=== PATIENT | male | born 1950 | race Caucasian/White ===

== ENCOUNTER 2016-12-01 03:45 | Inpatient (IN) | payer OTHER, MEDICARE ==
[~2016-12-01] VITALS: Ht 177.8 cm; Wt 119.5 kg
[2016-12-01] VITALS (11 sets, daily range): BP systolic 143–168; BP diastolic 66–74; PULSE 51–90; RESP 16–19; TEMP 96.4–98.9; O2SAT 94–99
[2016-12-01] MEDS ORDERED: PANT20TA2 PO (04:07)
[2016-12-01] MEDS ORDERED: ATEN25TA PO (04:07)
[2016-12-01] MEDS ORDERED: TEST1INJ3 IM (04:07)
[2016-12-01] MEDS ORDERED: CARB25TA16 PO (04:07)
[2016-12-01] MEDS ORDERED: COPP2TAB (04:07)
[2016-12-01] MEDS ORDERED: TRAZ100T4 PO (04:07)
[2016-12-01] MEDS ORDERED: IRBE300T11 PO (04:07)
[2016-12-01] MEDS ORDERED: FENO134C PO (04:07)
[2016-12-01] MEDS ORDERED: AMLO5TAB2 PO (04:07)
[2016-12-01] MEDS ORDERED: LEVO25TA4 PO (04:07)
[2016-12-01] MEDS ORDERED: ONDANSETRON HCL 4 MG/2 ML VIAL IVP ONE (04:15)
[2016-12-01] MEDS ORDERED: SODIUM CHLORID 0.9% 500 ML INJ 500 ML IV ONE (04:15)
--- NOTE | 2016-12-01 04:17 | PD ---
HPI Chief Complaint: GI Complaint Time Seen by Provider: 04:10 Travel History International Travel<30 days: No Contact w/Intl Traveler<30days: No Traveled to known affect area: No History of Present Illness HPI 66-year-old male patient presents to the ER today because of constipation for at least a week, and several days history of nausea, vomiting multiple times today. He denies any fevers, current abdominal pains, or any other symptoms. He states he has been feeling bloated for several days as well. He states that the symptoms seems to have started after eating a [place]iqu[place] a week ago. Modifying Factors: None Associated Signs & Symptoms: Abdominal bloating, nausea and vomiting Risk Factors: None PFSH Social History Tobacco Use: Yes Allergies-Medications (Allergen,Severity, Reaction): Coded Allergies: No Known Allergies (Unverified , 12/01/16) Reported Meds & Prescriptions Reported Meds & Active Scripts Active Reported Testosterone Cypionate Inj (Testosterone Cypionate) 100 Mg/Ml Inj 200 Mg IM ONCE Copper (Copper Gluconate) 2 Mg Tab Fenofibrate Micronized 134 Mg Cap 134 Mg PO DAILY Atenolol 25 Mg Tab 25 Mg PO BID Carbidopa-Levodopa ER 25-100 Mg Tab 1 Tab PO DAILY Irbesartan 300 Mg Tab 300 Mg PO DAILY Trazodone (Trazodone HCl) 100 Mg Tab 100 Mg PO HS Levothyroxine (Levothyroxine Sodium) 25 Mcg Tab 25 Mcg PO DAILY Pantoprazole (Pantoprazole Sodium) 20 Mg Tab 20 Mg PO DAILY Amlodipine (Amlodipine Besylate) 5 Mg Tab 5 Mg PO DAILY Review of Systems Except as stated in HPI: all other systems reviewed are Neg Physical Exam Narrative GENERAL: Elderly white male patient currently in moderate distress, awake and oriented 3. SKIN: Focused skin assessment warm/dry. HEAD: Atraumatic. Normocephalic. EYES: Pupils equal and round. No scleral icterus. No injection or drainage. ENT: No nasal bleeding or discharge. Mucous membranes pink and moist. NECK: Trachea midline. No JVD. CARDIOVASCULAR: Regular rate and rhythm. No murmur appreciated. RESPIRATORY: No accessory muscle use. Clear to auscultation. Breath sounds equal bilaterally. GASTROINTESTINAL: Abdomen soft, left lower quadrant tenderness without guarding or rebound, there is a notable for nodule in the left lower quadrant, nondistended. Hepatic and splenic margins not palpable. MUSCULOSKELETAL: No obvious deformities. No clubbing. No cyanosis. No edema. NEUROLOGICAL: Awake and alert. No obvious cranial nerve deficits. Motor grossly within normal limits. Normal speech. PSYCHIATRIC: Appropriate mood and affect; insight and judgment normal. Data Data Last Documented VS Vital Signs Date Time Temp Pulse Resp B/P Pulse Ox O2 Delivery O2 Flow Rate FiO2 12/01/16 05:41 74 16 164/73 99 Room Air 12/01/16 04:27 98.0 Orders Complete Blood Count With Diff (12/01/16 04:10) Comprehensive Metabolic Panel (12/01/16 04:10) Lipase (12/01/16 04:10) Urinalysis - C+S If Indicated (12/01/16 04:10) Ct Abd/Pel W Iv Contrast(Rout) (12/01/16 04:10) Iv Access Insert/Monitor (12/01/16 04:10) Ecg Monitoring (12/01/16 04:10) Oximetry (12/01/16 04:10) Ondansetron Inj (Zofran Inj) (12/01/16 04:15) Sodium Chloride 0.9% Flush (Ns Flush) (12/01/16 04:15) Sodium Chlorid 0.9% 500 Ml Inj (Ns 500 M (12/01/16 04:15) Iohexol 350 Inj (Omnipaque 350 Inj) (12/01/16 05:42) Labs Laboratory Tests Test 12/01/16 04:19 White Blood Count 17.2 TH/MM3 Red Blood Count 5.83 MIL/MM3 Hemoglobin 15.6 GM/DL Hematocrit 48.7 % Mean Corpuscular Volume 83.5 FL Mean Corpuscular Hemoglobin 26.7 PG Mean Corpuscular Hemoglobin 32.0 % Concent Red Cell Distribution Width 14.6 % Platelet Count 366 TH/MM3 Mean Platelet Volume 9.1 FL Neutrophils (%) (Auto) 87.7 % Lymphocytes (%) (Auto) 4.0 % Monocytes (%) (Auto) 5.7 % Eosinophils (%) (Auto) 0.1 % Basophils (%) (Auto) 2.5 % Neutrophils # (Auto) 15.1 TH/MM3 Lymphocytes # (Auto) 0.7 TH/MM3 Monocytes # (Auto) 1.0 TH/MM3 Eosinophils # (Auto) 0.0 TH/MM3 Basophils # (Auto) 0.4 TH/MM3 CBC Comment DIFF FINAL Differential Comment Sodium Level 141 MEQ/L Potassium Level 4.1 MEQ/L Chloride Level 105 MEQ/L Carbon Dioxide Level 22.2 MEQ/L Anion Gap 14 MEQ/L Blood Urea Nitrogen 28 MG/DL Creatinine 1.30 MG/DL Estimat Glomerular Filtration 55 ML/MIN Rate Random Glucose 127 MG/DL Calcium Level 9.5 MG/DL Total Bilirubin 1.0 MG/DL Aspartate Amino Transf 118 U/L (AST/SGOT) Alanine Aminotransferase 103 U/L (ALT/SGPT) Alkaline Phosphatase 105 U/L Total Protein 8.2 GM/DL Albumin 3.0 GM/DL Lipase 406 U/L [facility] Medical Decision Making Medical Screen Exam Complete: Yes Emergency Medical Condition: Yes Medical Record Reviewed: Yes Interpretation(s) Laboratory Tests Test 12/01/16 04:19 White Blood Count 17.2 TH/MM3 (4.0-11.0) Mean Corpuscular Hemoglobin 26.7 PG (27.0-34.0) Neutrophils (%) (Auto) 87.7 % (16.0-70.0) Lymphocytes (%) (Auto) 4.0 % (9.0-44.0) Basophils (%) (Auto) 2.5 % (0.0-2.0) Neutrophils # (Auto) 15.1 TH/MM3 (1.8-7.7) Lymphocytes # (Auto) 0.7 TH/MM3 (1.0-4.8) Monocytes # (Auto) 1.0 TH/MM3 (0-0.9) Basophils # (Auto) 0.4 TH/MM3 (0-0.2) Blood Urea Nitrogen 28 MG/DL (7-18) Estimat Glomerular Filtration 55 ML/MIN (>89) Rate Random Glucose 127 MG/DL (74-106) Aspartate Amino Transf 118 U/L (15-37) (AST/SGOT) Alanine Aminotransferase 103 U/L (12-78) (ALT/SGPT) Albumin 3.0 GM/DL (3.4-5.0) Lipase 406 U/L (73-393) Differential Diagnosis Nausea, vomiting, left lower quadrant tendernesscolitis versus gastroenteritis versus obstruction versus dehydration versus metabolic issues Narrative Course Patient was given IV fluids, Zofran, and lab work was sent. Lab work shows liver enzyme elevations and mild lipase elevations as well. CAT scan was done for further evaluation and shows a lateral ventral hernia with signs of bowel obstruction. There are also inflammation around the gallbladder notable. Case is discussed with Dr. Arellano and he states he wants to see the patient, wants the patient transferred to the main hospital for definitive treatment in the OR. Diagnosis Primary Impression: Lateral ventral hernia Additional Impressions: Bowel obstruction Cholecystitis Admitting Information Admitting Physician Requests: Admit Alok Bojorquez MD Dec 01, 2016 04:17
[2016-12-01 04:46] LABS: AUTOMATED NEUTROPHIL # 15.1 TH/MM3 (1.8-7.7); BASOPHIL # 0.4 TH/MM3 (0-0.2); BASOPHIL % 2.5 % (0.0-2.0); EOSINOPHIL % 0.1 % (0.0-4.0); HEMATOCRIT 48.7 % (39.0-51.0); LYMPHOCYTE # 0.7 TH/MM3 (1.0-4.8); MEAN CELL VOLUME 83.5 FL (80.0-100.0); MEAN CORPUSCULAR HEMOGLOBIN 26.7 PG (27.0-34.0); MONO % 5.7 % (0.0-8.0); NEUT % 87.7 % (16.0-70.0); PLATELET COUNT 366 TH/MM3 (150-450); RED BLOOD COUNT 5.83 MIL/MM3 (4.50-5.90); RED CELL DISTRIBUTION WIDTH 14.6 % (11.6-17.2); WHITE BLOOD COUNT 17.2 TH/MM3 (4.0-11.0)
[2016-12-01 04:49] LABS: HEMO FLAGS DIFF FINAL
[2016-12-01 04:57] LABS: CHLORIDE 105 MEQ/L (98-107); POTASSIUM 4.1 MEQ/L (3.5-5.1); SODIUM (NA) 141 MEQ/L (136-145)
[2016-12-01 05:01] LABS: ANION GAP 14 MEQ/L (5-15); BICARBONATE 22.2 MEQ/L (21.0-32.0); BLOOD UREA NITROGEN 28 MG/DL (7-18)
[2016-12-01 05:04] LABS: ALT (GPT) 103 U/L (12-78); AST (GOT) 118 U/L (15-37); GLOMERULAR FILTRATION RATE 55 ML/MIN (>89)
[2016-12-01 05:07] LABS: ALKALINE PHOSPHATASE 105 U/L (45-117)
[2016-12-01] MEDS ORDERED: IOHEXOL 350 MG/ML 10 ML VIAL (for RAD DIAG) IV ONE (05:42)
--- NOTE | 2016-12-01 06:02 | RADHPO ---
EXAM DATE/TIME: 12/01/2016 05:23 [facility] COMPARISON: No previous studies available for comparison. INDICATIONS : Nausea, vomiting, and constipation. IV CONTRAST: 96 cc Omnipaque 350 (iohexol) IV ORAL CONTRAST: No oral contrast ingested. RADIATION DOSE: 21.87 CTDIvol (mGy) MEDICAL HISTORY : None SURGICAL HISTORY : None. ENCOUNTER: Initial ACUITY: 1 day PAIN SCALE: 4/10 LOCATION: Abdomen. TECHNIQUE: Volumetric scanning of the abdomen and pelvis was performed. Using automated exposure control and ad justment of the mA and/or kV according to patient size, radiation dose was kept as low as reasonably achievable to obtain optimal diagnostic quality images. FINDINGS: LOWER LUNGS: There is fluid seen involving the lower thoracic esophagus. The esophagus is dilated. LIVER: Homogeneous density without lesion. There is no dilation of the biliary tree. No calcified gallstone s observed. There is wall thickening and mild stranding of the pericholecystic fat. SPLEEN: Normal size without lesion. PANCREAS: Within normal limits. KIDNEYS: Normal in size and shape. There is no mass, stone or hydronephrosis. ADRENAL GLANDS: Within normal limits. VASCULAR: There is no aortic aneurysm. BOWEL/MESENTERY: There is a Spigellian hernia on the left lobe within the left lower quadrant. It contains a loop of s mall bowel. There is a focal transition point in the caliber of bowel within the hernia. There is dil atation of the proximal small bowel which is also fluid-filled. The distal small bowel and colon are decompressed. No free air or free fluid. ABDOMINAL WALL: Spigellian hernia on the left. RETROPERITONEUM: There is no lymphadenopathy. BLADDER: No wall thickening or mass. REPRODUCTIVE: Within normal limits. INGUINAL: There is no lymphadenopathy or hernia. MUSCULOSKELETAL: Within normal limits for patient age. CONCLUSION: 1. A Spigellian hernia on the left contains small bowel and is clearly obstructing with dilatation of the more proximal small bowel. 2. Wall thickening and stranding of the pericholecystic fat suggesting an inflammatory process involv ing the gallbladder. No stones observed. Ricardo Akins Jr., MD on December 01, 2016 at 5:54 Board Certified Radiologist. This report was verified electronically.
[2016-12-01 06:20] LABS: BLOOD, URINE NEG (NEG); GLUCOSE,URINE NEG (NEG); KETONE, URINE NEG (NEG); NITRITE,URINE NEG (NEG); PH, URINE 5.5 (5.0-8.5)
[2016-12-01 06:27] LABS: METHOD OF COLLECTION CLEAN CATCH; URINE COLOR AMBER (YELLW/STRAW)
[2016-12-01 06:29] LABS: COMMENT (UR) CULT NOT INDICATED; COMMENT2 (UR) MUCOUS PRESENT; CULTURE IF INDICATED CULT NOT INDICATED; SQUAMOUS EPITHELIAL CELL URINE 0-5 /hpf (0-5); TRANSITIONAL EPI CELLS, URINE 0-5 /hpf
[2016-12-01] MEDS ORDERED: LIDOCAINE HCL 1% 50 ML VIAL ONE (10:14)
[2016-12-01] MEDS ORDERED: BUPIVACAINE/EPINEPHRINE 0.5% 50 ML VIAL ONE (10:14)
[2016-12-01] MEDS ORDERED: BUPIVACAINE/EPINEPHRINE 0.25% 50 ML VIAL ONE (10:14)
[2016-12-01] MEDS ORDERED: ceFAZolin INJ 1,000 MG VIAL ONE (10:55)
[2016-12-01] MEDS ORDERED: fentaNYL CITRATE 250 MCG/5 ML AMP ONE ×2 (10:59→14:05)
--- NOTE | 2016-12-01 11:44 | MH ---
cc: MOLLY VILLAR MD DATE OF ADMISSION: 12/01/2016 CHIEF COMPLAINT Abdominal point of pain, ventral hernia. HISTORY OF PRESENT ILLNESS The patient is a 66-year-old male who presents with history of sleeve gastrectomy and right inguinal hernia repair, several medical issues, complaints of nausea, vomiting, abdominal pain. He stated the pain has gone on for approximately one week. He has been in pain in the left lower quadrant, intermittent, sharp with 8 out of 10, currently a 2 out of 10, better with lying still, worse with movement. He has had associated multiple episodes recently of nausea, vomiting. It prompted him to come to the emergency department for further evaluation including CT scan. CT findings are consistent with spigelian hernia on the left, incarcerated small bowel with bowel obstruction. Also concern for inflamed gallbladder. The patient is denying significant complaints of right upper quadrant pain or pain on eating though. He complains of constipation. He denies diarrhea. He said he has had some pain on the left lower quadrant in the past that came intermittently but this was the worst. Surgery was consulted for further evaluation. PAST MEDICAL HISTORY 1. Hypertension. 2. Morbid obesity. 3. Sleep apnea. 4. History of pituitary disease. 5. Hypercholesteremia. PAST SURGICAL HISTORY 1. Right inguinal hernia repair. 2. Sleeve gastrectomy five years ago. SOCIAL HISTORY The patient denies smoking daily but has occasional cigars. Occasional ETOH. FAMILY HISTORY Father with hypertension and diabetes. ALLERGIES The patient with no known drug allergies. MEDICATIONS See EMR, aspirin. REVIEW OF SYSTEMS GENERAL: Denies eye pain, ear pain. HEENT: Denies blurry vision or drainage. NECK: Denies pain or swelling. CARDIOVASCULAR: Denies palpitations, tachycardia. RESPIRATION: Denies wheeze or cough. GI: Complains of nausea, vomiting, abdominal pain, hernia. MUSCULOSKELETAL: Denies edema or cyanosis. NEUROLOGIC: Denies numbness or tingling. PSYCHE: Denies change in mood. ENDOCRINE: Denies dysuria or hematuria. : Denies polyuria, polydipsia. PHYSICAL EXAMINATION GENERAL: The patient is in no acute distress. VITAL SIGNS: Temperature 98, pulse 74, respirations 16, blood pressure 164/73, 99% saturation on room air. HEENT: PERRLA, EOMI. NECK: Supple. Trachea midline. LUNGS: Clear to auscultation bilaterally. Bilateral expansion. HEART: S1, S2, regular rhythm. ABDOMEN: Soft, mild distension, obese. Healed laparoscopic surgery scars, palpable firm hernia left lower quadrant, non reducible. No evidence of erythema. EXTREMITIES: Minimal lower extremity brawny skin changes. No edema. Warm, well-perfused. PSYCHE: Good insight, good judgment. NEUROLOGIC: GCS of 15. A&O x4. Moving all extremities. LABORATORY AND DIAGNOSTIC DATA WBC 17.2 hemoglobin 15.6, hematocrit 48.7, platelets 366. Sodium 141, potassium 4.1, BUN 28, creatinine 1.3, glucose 127, calcium 9.5. T-bili 1, AST 118, ALT 103, lipase 406, albumin 3. CT reviewed by myself reveals spigelian hernia left lower quadrant containing small-bowel with obstruction, dilated proximal small bowel wall thickening and stranding of the gallbladder with concern for inflammatory process. ASSESSMENT The patient is a 66-year-old male with history of sleeve gastrectomy, presents with incarcerated left lower quadrant spigelian hernia. Concern for acalculous cholecystitis. PLAN After full clinical radiologic data, the patient with above-named issues including incarcerated left lower quadrant spigelian hernia. At this point the patient needs IV fluids and p.o. pain control. We will take the patient to the OR for operative treatment including a diagnostic laparoscopy, possible open exploratory laparotomy, possible mesh, possible bowel resection. This was discussed with the patient in detail. In regards to the gallbladder, the patient does have minimal symptomatology from this, however, it does look inflamed and his labs minimally reflect this as well. Discussed with the patient regarding possible cholecystectomy. We will evaluate this in the OR, if grossly looks concerning we will remove the gallbladder at this time. However, I discussed if we were planning to place mesh or there is further concern, we will treat the gallbladder conservatively as to avoid higher risk of mesh infection. This was all discussed with the patient and at bedside. They stated understanding, agreed and would like to proceed. MD SHARAN Arreguin/JHONY /8:30 AM /11:14 AM
[2016-12-01] MEDS ORDERED: ePHEDrine/NS 25 MG/5 ML SYR IV ONE (12:00)
[2016-12-01] MEDS ORDERED: ONDANSETRON HCL 4 MG/2 ML VIAL IV PUSH ONE (12:00)
[2016-12-01] MEDS ORDERED: PROPOFOL 200 MG/20 ML AMP IV ONE (12:00)
[2016-12-01] MEDS ORDERED: NEOSTIGMINE 3 MG/3 ML SYR IV ONE (12:00)
[2016-12-01] MEDS ORDERED: LACTATED RINGER'S 1000 ML INJ 2,000 ML IV ONE (12:00)
--- NOTE | 2016-12-01 14:08 | HHI.PR ---
cc: Floyd Woo MD Immediate Post Op Note Procedure Date: Dec 01, 2016 Pre Op Diagnosis: (1) Cholecystitis (2) Bowel obstruction (3) Lateral ventral hernia (4) Spigelian hernia with gangrene Post Op Diagnosis: (1) Cholecystitis (2) Bowel obstruction (3) Lateral ventral hernia (4) Spigelian hernia with gangrene Surgeon: Floyd Woo Tail End Rider(s): constance tovar Procedure: reduction of incarcerated spigelian hernia and resection of necrotic omentum lap christy Findings: incarcerated spigelian hernia inflammed gb Complications: point hope ira Specimen(s) removed: omentum and gb Anesthesia: General Drains: HEATHER IVF Patient to: PACU Patient Condition: Good Implant/Devices: SEE IMPLANT LOG (if applicable) Date/Time of Procedure: SEE SURGICAL CARE RECORD Floyd Woo MD Dec 01, 2016 14:08
[2016-12-01] MEDS ORDERED: PROMETHAZINE HCL 25 MG SUPP RECTAL PRN (14:15)
[2016-12-01] MEDS ORDERED: SODIUM CHLORIDE 0.9% FLUSH 5 ML FLUSH IVF PRN (14:15)
[2016-12-01] MEDS ORDERED: ONDANSETRON HCL 4 MG/2 ML VIAL IV PRN (14:15)
[2016-12-01] MEDS ORDERED: ACETAMINOPHEN/HYDROcodone 325 MG/5 MG TAB PO PRN ×2 (14:15)
[2016-12-01] MEDS: PANTOPRAZOLE SODIUM 40 MG VIAL IV SCH (14:23)
[2016-12-01] MEDS: LACTATED RINGER'S 1000 ML INJ 1,000 ML IV SCH ×2 (14:25→19:27)
--- NOTE | 2016-12-01 16:24 | PD.CONS ---
HPI Service [facility] Consult Requested By General surgery service Reason for Consult Medical management Primary Care Physician Gurwinder Sanchez MD Diagnoses: History of Present Illness Patient is a 66-year-old male with known history of hypertension, hyperlipidemia , hypothyroidism who for the past 1 week now has been complaining of abdominal pain. Yesterday severe in intensity associated with nausea vomiting. Persistence prompted consult to the ER at [facility] where on evaluation was noted to have an incarcerated ventral hernia and patient was transferred here to [facility] was promptly seen by general surgery service and underwent surgery Finding shows a large ventral hernia and a spigelian hernia with gangrene. Patient had an inflamed gallbladder Patient had reduction of incarcerated hernia and resection of necrotic omentum. Patient also had a cholecystectomy done. Patient now seen postop and doing well and [facility] consulted for medical management. Review of Systems Constitutional: DENIES: Fever, Weight loss, Chills, Change in appetite Eyes: DENIES: Blurred vision, Double Vision Ears, nose, mouth, throat: DENIES: Tinnitus, Ear Pain, Epistaxis, Odynophagia Respiratory: DENIES: Cough, Hemoptysis, Sputum production, Shortness of breath Cardiovascular: DENIES: Chest pain, Palpitations, Dyspnea on Exertion, Lower Extremity Edema, Orthopnea Gastrointestinal: DENIES: Black stools, Bloody stools, Difficulty Swallowing, Anorexia Genitourinary: DENIES: Urgency, Hematuria, Penile Discharge Musculoskeletal: DENIES: Joint pain, Stiffness Integumentary: DENIES: Pruritus Hematologic/lymphatic: DENIES: Bruising Immunologic/allergic: DENIES: Urticaria Neurologic: DENIES: Headache, Speech Problems, Tremor Psychiatric: DENIES: Suicidal Ideation, Homicidal Ideation Past Family Social History Allergies: Coded Allergies: No Known Allergies (Unverified , 12/01/16) Past Medical History Hypertension Restless leg syndrome Hyperlipidemia Hypothyroidism Empty sella syndrome Past Surgical History History of sleeve gastrectomy for obesity 5 years ago History of right inguinal hernia repair at 1 years old and at 28 years old Reported Medications As outpatient is on irbesartan 3300 mg daily testosterone IM every 10 days Trazodone 100 mg at bedtime Atenolol 25 mg twice a Carbidopa/levodopa 25/100 mg daily Fenofibrate 134 mg daily Synthroid 25 g daily Family History Hello positive history of hypertension and diabetes type 2 Social History Very occasional cigar Very occasional beer Physical Exam Vital Signs Vital Signs Date Time Temp Pulse Resp B/P Pulse Ox O2 Delivery O2 Flow Rate FiO2 12/01/16 14:45 98.7 63 14 148/66 96 Nasal Cannula 2 12/01/16 14:30 57 14 136/66 95 12/01/16 14:15 58 14 127/59 96 12/01/16 14:00 64 14 121/53 97 Nasal Cannula 2 12/01/16 13:55 98.6 69 16 141/70 97 Nasal Cannula 2 12/01/16 09:18 97.6 51 19 158/72 97 12/01/16 07:00 53 18 151/74 99 Room Air 12/01/16 05:41 74 16 164/73 99 Room Air 12/01/16 05:07 55 16 152/68 97 Room Air 12/01/16 04:32 54 16 144/74 94 Room Air 12/01/16 04:27 98.0 64 18 143/69 96 12/01/16 04:19 54 16 144/74 96 Room Air 12/01/16 03:51 98.0 64 18 143/69 96 Physical Exam GENERAL: Obese in no apparent distress. SKIN: No rashes, ecchymoses or lesions. Cool and dry. HEAD: Atraumatic. Normocephalic. No temporal or scalp tenderness. EYES: Pupils equal round and reactive. Extraocular motions intact. No scleral icterus. No injection or drainage. ENT: Nose without bleeding, purulent drainage or septal hematoma. Throat without erythema, tonsillar hypertrophy or exudate. Uvula midline. Airway patent. NECK: T No JVD or lymphadenopathy. Supple, nontender, no meningeal signs. CARDIOVASCULAR: Regular rate and rhythm without murmurs, gallops, or rubs. RESPIRATORY: Clear to auscultation. Breath sounds equal bilaterally. No wheezes , rales, or rhonchi. GASTROINTESTINAL: Abdomen soft, postop dressing in place with bulb/drain with minimal blood MUSCULOSKELETAL: Extremities without clubbing, cyanosis, or edema. No joint tenderness, effusion, or edema noted. No calf tenderness. Negative Homans sign bilaterally. NEUROLOGICAL: Awake and alert. Cranial nerves II through XII intact. Motor and sensory grossly within normal limits. Five out of 5 muscle strength in all muscle groups. Normal speech. Laboratory Laboratory Tests Test 12/01/16 12/01/16 04:19 06:10 White Blood Count 17.2 Red Blood Count 5.83 Hemoglobin 15.6 Hematocrit 48.7 Mean Corpuscular Volume 83.5 Mean Corpuscular Hemoglobin 26.7 Mean Corpuscular Hemoglobin 32.0 Concent Red Cell Distribution Width 14.6 Platelet Count 366 Mean Platelet Volume 9.1 Neutrophils (%) (Auto) 87.7 Lymphocytes (%) (Auto) 4.0 Monocytes (%) (Auto) 5.7 Eosinophils (%) (Auto) 0.1 Basophils (%) (Auto) 2.5 Neutrophils # (Auto) 15.1 Lymphocytes # (Auto) 0.7 Monocytes # (Auto) 1.0 Eosinophils # (Auto) 0.0 Basophils # (Auto) 0.4 CBC Comment DIFF FINAL Differential Comment Sodium Level 141 Potassium Level 4.1 Chloride Level 105 Carbon Dioxide Level 22.2 Anion Gap 14 Blood Urea Nitrogen 28 Creatinine 1.30 Estimat Glomerular Filtration 55 Rate Random Glucose 127 Calcium Level 9.5 Total Bilirubin 1.0 Aspartate Amino Transf 118 (AST/SGOT) Alanine Aminotransferase 103 (ALT/SGPT) Alkaline Phosphatase 105 Total Protein 8.2 Albumin 3.0 Lipase 406 Urine Collection Type CLEAN CATCH Urine Color VICK Urine Turbidity CLEAR Urine pH 5.5 Urine Specific [place] GREATER THAN 1.035 Urine Protein 30 Urine Glucose (UA) NEG Urine Ketones NEG Urine Occult Blood NEG Urine Nitrite NEG Urine Bilirubin NEG Urine Leukocyte Esterase NEG Urine RBC 4-9 Urine Squamous Epithelial 0-5 Cells Urine Transitional Epithelial 0-5 Cells Urine Amorphous Sediment MOD Microscopic Urinalysis Comment CULT NOT INDICATED Urine Collection Time 0610 Result Diagram: 12/01/16 0419 12/01/16 041 Imaging Last Impressions Abdomen/Pelvis CT 12/01/16409 Signed Impressions: Service Date/Time: Thursday, December 01, 2016 05:23 - CONCLUSION: 1. A Spigellian hernia on the left contains small bowel and is clearly obstructing with dilatation of the more proximal small bowel. 2. Wall thickening and stranding of the pericholecystic fat suggesting an inflammatory process involving the gallbladder. No stones observed. Ricardo Akins Jr., MD Assessment and Plan Assessment and Plan 66-year-old male status post exploratory lap with repair of large ventral hernia reduction of incarcerated spigelian hernia and resection of necrotic omentum, cholecystectomy -Post op care per general surgery Acute Kidney insufficiency- currently on IVF, recheck BMP in am History of hypertension. As OP irbesartan 300 mg daily atenolol 25 mg twice a day. amlodipine. Monitor and restart meds in am History of restless leg syndrome Will restart meds in a.m. carbidopa levodopa 25 /100 mg daily trazodone 100 mg at bedtime History of hyperlipidemia continue on fenofibrate 135 mg daily History of empty sella syndrome patient on Synthroid replacement and testosterone IM every 10 days Elevated LFTs= per patient chronic. no history of hepatitis- per patient tested - negative. FF trend This encourage incentive spirometry. Early ambulation Thank you for this consult we'll follow patient in-house with you Loraine Rojas MD Dec 01, 2016 16:24
[2016-12-01] MEDS: SODIUM CHLORIDE 0.9% FLUSH 10 ML FLUSH IV FLUSH PRN (19:28)
[2016-12-01] MEDS: SODIUM CHLORIDE 0.9% FLUSH 5 ML FLUSH IVF SCH (19:28)
[2016-12-02] VITALS (8 sets, daily range): BP systolic 126–148; BP diastolic 63–71; PULSE 53–63; RESP 16–19; TEMP 97.4–99.3; O2SAT 94–97
[2016-12-02 06:24] LABS: AUTOMATED NEUTROPHIL # 11.6 TH/MM3 (1.8-7.7); BASOPHIL # 0.1 TH/MM3 (0-0.2); BASOPHIL % 0.4 % (0.0-2.0); EOSINOPHIL # 0.1 TH/MM3 (0-0.4); EOSINOPHIL % 0.5 % (0.0-4.0); HEMATOCRIT 39.3 % (39.0-51.0); HEMO FLAGS DIFF FINAL; LYMPH % 7.9 % (9.0-44.0); LYMPHOCYTE # 1.1 TH/MM3 (1.0-4.8); MEAN CELL VOLUME 85.3 FL (80.0-100.0); MEAN CORPUSCULAR HEMOGLOBIN 26.9 PG (27.0-34.0); MEAN CORPUSCULAR HGB CONC 31.5 % (32.0-36.0); MONO % 9.5 % (0.0-8.0); NEUT % 81.7 % (16.0-70.0); PLATELET COUNT 285 TH/MM3 (150-450); RED BLOOD COUNT 4.61 MIL/MM3 (4.50-5.90); RED CELL DISTRIBUTION WIDTH 15.2 % (11.6-17.2); WHITE BLOOD COUNT 14.2 TH/MM3 (4.0-11.0)
[2016-12-02 06:51] LABS: BICARBONATE 24.8 MEQ/L (21.0-32.0); POTASSIUM 4.7 MEQ/L (3.5-5.1)
[2016-12-02] MEDS: SODIUM CHLORIDE 0.9% FLUSH 5 ML FLUSH IVF SCH ×2 (08:25→21:00)
[2016-12-02] MEDS: LACTATED RINGER'S 1000 ML INJ 1,000 ML IV SCH ×2 (08:25→20:03)
--- NOTE | 2016-12-02 09:46 | HHI.PR ---
Subjective Subjective Notes DAILY PROGRESS NOTE FOR SURGICAL ATTENDING, DR. JHONATAN WOO Doing well He wants to get up and move around Objective Vitals/I&O 12/01/16 12/01/16 12/02/16 15:00 23:00 07:00 Intake Total 0 ml 745 ml 1159 ml Output Total 30 ml 670 ml 380 ml Balance -30 ml 75 ml 779 ml Intake Oral 0 ml 240 ml 240 ml IV Total 505 ml 919 ml Output Urine Total 650 ml 350 ml Drainage Total 30 ml 20 ml 30 ml # Voids 0 # Bowel Movements 0 0 0 Vital Signs Date Time Temp Pulse Resp B/P Pulse Ox O2 Delivery O2 Flow Rate FiO2 12/02/16 08:27 Nasal Cannula 2.00 12/02/16 08:00 98.8 60 18 140/71 97 Labs Laboratory Tests Test 12/02/16 12/02/16 05:34 05:43 Sodium Level 141 Potassium Level 4.7 Chloride Level 108 Carbon Dioxide Level 24.8 Anion Gap 8 Blood Urea Nitrogen 20 Creatinine 1.16 Estimat Glomerular Filtration 63 Rate Random Glucose 102 Calcium Level 8.0 White Blood Count 14.2 Red Blood Count 4.61 Hemoglobin 12.4 Hematocrit 39.3 Mean Corpuscular Volume 85.3 Mean Corpuscular Hemoglobin 26.9 Mean Corpuscular Hemoglobin 31.5 Concent Red Cell Distribution Width 15.2 Platelet Count 285 Mean Platelet Volume 8.7 Neutrophils (%) (Auto) 81.7 Lymphocytes (%) (Auto) 7.9 Monocytes (%) (Auto) 9.5 Eosinophils (%) (Auto) 0.5 Basophils (%) (Auto) 0.4 Neutrophils # (Auto) 11.6 Lymphocytes # (Auto) 1.1 Monocytes # (Auto) 1.4 Eosinophils # (Auto) 0.1 Basophils # (Auto) 0.1 CBC Comment DIFF FINAL Differential Comment Radiology Last Impressions Abdomen/Pelvis CT 12/01/16 0410 Signed Impressions: Service Date/Time: Thursday, December 01, 2016 05:23 - CONCLUSION: 1. A Spigellian hernia on the left contains small bowel and is clearly obstructing with dilatation of the more proximal small bowel. 2. Wall thickening and stranding of the pericholecystic fat suggesting an inflammatory process involving the gallbladder. No stones observed. Ricardo Akins Jr., MD Cardiovascular: Regular Abdomen: Other (HEATHER in place), Post-op tenderness Extremities: SCD's on A/P Problem List: (1) Spigelian hernia with gangrene (2) Status post spigelian hernia repair, follow-up exam (3) Cholecystitis (4) Bowel obstruction Plan: From hernia Assessment and Plan DAILY PROGRESS NOTE FOR SURGICAL ATTENDING, DR. JHONATAN WOO Doing well wants more to eat Patient wants to get up and move around DC Perry wean oxygen advance diet as tolerated Attending Statement NOTE FOR SURGICAL ATTENDING, DR. JHONATAN WOO I attest that I had a [id number] encounter with the patient on the same day, and personally performed and documented my assessment and findings in the medical record. The following services were provided during this hospital visit: Chart data review, vital sign assessments/reviewing monitor data Review of consultations notes if present. Medication orders/review and/or management Ordering and/or reviewing lab tests Ordering and/or interpreting/reviewing x-rays and/or diagnostic studies Care of the patient and discussion of the patient with the care team Documentation time To help prompt me to consider important information that might be impacting today's encounter and assessment, information from prior notes written by myself or my colleagues may have been "brought forward/copy and pasted" into today's note. Problem Qualifiers (1) Bowel obstruction: Qualified Code: K56.69 - Other specified intestinal obstruction Jhonatan Woo MD Dec 02, 2016 09:46
--- NOTE | 2016-12-02 10:26 | EKG ---
Date Performed: 12/01/2016 Time Performed: 10:38:53 PTAGE: 66 years EKG: SINUS BRADYCARDIA INFERIOR MYOCARDIAL INFARCTION , PROBABLY OLD ABNORMAL ECG NO PREVIOUS TRACING DOCTOR: Marce Gaines Interpretating Date/Time 12/02/2016 10:24:14
--- NOTE | 2016-12-02 10:35 | HHI.PR ---
Subjective Remarks tolerating clears/broth no nausea or vomiting, burping a lot no abdominal pain complain Objective Vitals Vital Signs Date Time Temp Pulse Resp B/P Pulse Ox O2 Delivery O2 Flow Rate FiO2 12/02/16 08:27 Nasal Cannula 2.00 12/02/16 08:00 98.8 60 18 140/71 97 12/02/16 04:00 98.6 55 16 139/66 97 12/02/16 00:00 99.3 63 17 141/63 96 12/01/16 20:00 98.9 90 16 155/66 94 12/01/16 19:27 94 Nasal Cannula 2.00 12/01/16 18:38 97 Nasal Cannula 3.00 12/01/16 15:02 96.4 61 18 168/74 98 12/01/16 14:45 98.7 63 14 148/66 96 Nasal Cannula 2 12/01/16 14:30 57 14 136/66 95 12/01/16 14:15 58 14 127/59 96 12/01/16 14:00 64 14 121/53 97 Nasal Cannula 2 12/01/16 13:55 98.6 69 16 141/70 97 Nasal Cannula 2 I/O 12/01/16 12/01/16 12/01/16 12/02/16 12/02/16 12/02/16 07:00 15:00 23:00 07:00 15:00 23:00 Intake Total 0 ml 745 ml 1159 ml Output Total 150 ml 30 ml 670 ml 380 ml Balance -150 ml -30 ml 75 ml 779 ml Intake Oral 0 ml 240 ml 240 ml IV Total 505 ml 919 ml Output Urine Total 150 ml 650 ml 350 ml Drainage Total 30 ml 20 ml 30 ml # Voids 1 0 # Bowel Movements 0 0 0 Result Diagram: 12/02/16 0543 12/02/16 0534 Imaging Last Impressions Abdomen/Pelvis CT 12/01/16 0410 Signed Impressions: Service Date/Time: Thursday, December 01, 2016 05:23 - CONCLUSION: 1. A Spigellian hernia on the left contains small bowel and is clearly obstructing with dilatation of the more proximal small bowel. 2. Wall thickening and stranding of the pericholecystic fat suggesting an inflammatory process involving the gallbladder. No stones observed. Ricardo Akins Jr., MD Objective Remarks awake and alert, NAD anicteric lungs- no rales regular rhythm abdomen soft- sterile strips in place, abdominal binder, + bowel sounds extremities no edema cope in place Procedures 12/01- explore lap- cholecystectomy, repair of large ventral hernia, resection on necrotic omentum Urinary Catheter: Yes Assessment to: Remove Date of Insertion: Dec 01, 2016 Date of Removal: Dec 02, 2016 A/P Assessment and Plan 66-year-old male status post exploratory lap with repair of large ventral hernia reduction of incarcerated spigelian hernia and resection of necrotic omentum, cholecystectomy 12/01 - Gen srugery ff - encourage incentive spirometry - increase activity. Get PT consult - advance diet per GS History of hypertension. - As OP irbesartan 300 mg daily atenolol 25 mg twice a day. amlodipine. Acute Kidney Insuffiecny- non oliguric. continue IVF - monitor- reintroduce meds gradually History of restless leg syndrome - start carbidopa levodopa 25/100 mg daily trazodone 100 mg at bedtime History of hyperlipidemia continue on fenofibrate 135 mg daily History of empty sella syndrome - restart patient on his Synthroid replacement and testosterone IM every 10 days Elevated LFTS- trendded down - per patient history of elevated LFTs= being monitored by PCP encourage incentive spirometry. Early ambulation Loraine Rojas MD Dec 02, 2016 10:35
[2016-12-02] MEDS: ACETAMINOPHEN INJ 100 ML IV SCH ×3 (11:12→21:38)
[2016-12-02 11:30] LABS: INDIRECT BILIRUBIN 0.7 MG/DL (0.0-0.8)
[2016-12-02] MEDS: LEVOTHYROXINE SODIUM 25 MCG TAB PO SCH (12:00)
[2016-12-02] MEDS: amLODIPine BESYLATE 5 MG TAB PO SCH (12:00)
[2016-12-02] MEDS: PANTOPRAZOLE SODIUM 40 MG VIAL IV SCH (15:38)
[2016-12-02] MEDS ORDERED: CARBIDOPA LEVODOPA PO SCH (21:00)
[2016-12-02] MEDS ORDERED: traZODone HCL 50 MG TAB PO SCH (21:00)
[2016-12-02] MEDS: SODIUM CHLORIDE 0.9% FLUSH 10 ML FLUSH IV FLUSH PRN (21:09)
[2016-12-03] VITALS: BP 121/58; PULSE 48; RESP 16; TEMP 98; O2SAT 98
[2016-12-03] MEDS: ACETAMINOPHEN INJ 100 ML IV SCH (04:43)
[2016-12-03] MEDS: LEVOTHYROXINE SODIUM 25 MCG TAB PO SCH (05:57)
[2016-12-03] MEDS: LACTATED RINGER'S 1000 ML INJ 1,000 ML IV SCH (05:57)
[2016-12-03 08:00] VITALS: BP 156/73; PULSE 50; RESP 18; TEMP 98.9; O2SAT 96
--- NOTE | 2016-12-03 08:56 | HHI.FF ---
Face to Face Verification Diagnosis: (1) Cholecystitis (2) Lateral ventral hernia Home Health Nursing Order: Wound care and dressing changes Instructions: HEATHER drain monitoring and management I have seen patient Prakash Blum on 12/03/16. My clinical findings support the need for the requested home health care services because: Limited ability to care for self High risk of falls I certify that my clinical findings support that this patient is homebound because: Post-op weakness Nani Madrigal [facility] Dec 03, 2016 08:56
[2016-12-03] MEDS ORDERED: LEVOTHYROXINE SODIUM 25 MCG TAB PO SCH (09:00)
[2016-12-03] MEDS ORDERED: FENOFIBRATE 145 MG TAB PO SCH (09:00)
[2016-12-03] MEDS ORDERED: amLODIPine BESYLATE 5 MG TAB PO SCH (09:00)
[2016-12-03] MEDS: SODIUM CHLORIDE 0.9% FLUSH 5 ML FLUSH IVF SCH (09:00)
[2016-12-03] MEDS: amLODIPine BESYLATE 5 MG TAB PO SCH (09:53)
[2016-12-03] MEDS ORDERED: NORC5TAB PO (10:49)
[2016-12-03 12:00] VITALS: BP 157/56; PULSE 54; RESP 18; TEMP 98.7; O2SAT 97
--- NOTE | 2016-12-03 12:55 | HHI.PR ---
Subjective Remarks tolerating po ambulating around Objective Vitals Vital Signs Date Time Temp Pulse Resp B/P Pulse Ox O2 Delivery O2 Flow Rate FiO2 12/03/16 08:00 98.9 50 18 156/73 96 12/03/16 00:00 98.0 48 16 121/58 98 12/02/16 19:58 99.3 61 19 138/63 96 12/02/16 16:33 99.1 53 19 126/63 94 12/02/16 16:32 97 21 I/O 12/02/16 12/02/16 12/02/16 12/03/16 12/03/16 12/03/16 07:00 15:00 23:00 07:00 15:00 23:00 Intake Total 1159 ml 1040 ml 240 ml Output Total 380 ml 655 ml 435 ml Balance 779 ml 385 ml -195 ml Intake Oral 240 ml 1040 ml 240 ml IV Total 919 ml Output Urine Total 350 ml 550 ml 400 ml Drainage Total 30 ml 105 ml 35 ml # Bowel Movements 0 0 0 Result Diagram: 12/02/16 0543 12/02/16 0534 Imaging Last Impressions Abdomen/Pelvis CT 12/01/16 0410 Signed Impressions: Service Date/Time: Thursday, December 01, 2016 05:23 - CONCLUSION: 1. A Spigellian hernia on the left contains small bowel and is clearly obstructing with dilatation of the more proximal small bowel. 2. Wall thickening and stranding of the pericholecystic fat suggesting an inflammatory process involving the gallbladder. No stones observed. Ricardo Akins Jr., MD Objective Remarks awake and alert, NAD anicteric lungs- no rales regular rhythm abdomen soft- sterile strips in place,, + bowel sounds extremities no edema Procedures 12/01- explore lap- cholecystectomy, repair of large ventral hernia, resection on necrotic omentum Date of Insertion: Dec 01, 2016 Date of Removal: Dec 02, 2016 A/P Assessment and Plan 66-year-old male status post exploratory lap with repair of large ventral hernia reduction of incarcerated spigelian hernia and resection of necrotic omentum, cholecystectomy 12/01 - Gen srugery ff - encourage incentive spirometry - increase activity. - advance diet per GS History of hypertension. Bradycardia- his bb on hold - As OP irbesartan 300 mg daily atenolol 25 mg twice a day. - both on hold - continue on amlodipine. while here- good readings Acute Kidney Insuffiecny- non oliguric. - monitor-- renal functions stable History of restless leg syndrome - carbidopa levodopa 25/100 mg daily trazodone 100 mg at bedtime History of hyperlipidemia continue on fenofibrate 135 mg daily History of empty sella syndrome - Synthroid replacement and testosterone IM every 10 days Elevated LFTs- chronic -ff with PCP- being monitored encourage incentive spirometry. Early ambulation d./w patient and if DC ff up with PCP Loraine Maradiaga MD Dec 03, 2016 12:55
[2016-12-03] MEDS: PANTOPRAZOLE SODIUM 40 MG VIAL IV SCH (14:00)
--- NOTE | 2016-12-03 14:37 | MP ---
cc: FLOYD WOO M.D. DATE OF PROCEDURE 12/01/2016 PREOPERATIVE DIAGNOSIS Incarcerated Spigelian hernia with abnormal-appearing gallbladder on CT scan. POSTOPERATIVE DIAGNOSIS 1. Incarcerated Spigelian hernia with necrotic omentum. 2. Chronically inflamed, scarred-in the gallbladder. PROCEDURE 1. Laparoscopic evaluation of the incarcerated Spigelian hernia. 2. Open reduction of incarcerated Spigelian hernia. 3. Resection of omental fat on the sigmoid colon that was necrotic secondary to incarceration. 4. Repair of Spigelian hernia, primary closure. 5. Laparoscopic cholecystectomy. ANESTHESIA General. SURGEON Dr. Woo BUSINESS COMMUNICATIONS INSTRUCTOR Dr. Brandon Arellano INDICATION This is a pleasant 66-year-old gentleman who came to the hospital. He had been sick on and off for about 10 days, complained of abdominal discomfort. He had a gastric sleeve about three years ago, lost some weight. On imaging it showed he had an incarcerated Spigelian hernia and a thickened gallbladder. I was not sure if he got sick from his gallbladder that caused the hernia or vice versa and the gallbladder was incidental. In evaluating the gallbladder, it was obviously quite inflamed and so plans were made for cholecystectomy at the same setting. PROCEDURE The patient was taken to the operating room, placed in supine position. After endotracheal anesthesia, his abdomen was prepped with Betadine. We make an incision below the xiphoid. A 10-mm trocar was directly inserted. We are able to see what appears to be small bowel stuck in the hernia sac. We are not able to reduce it. For this reason, we make a horizontal incision overlying the defect and incarcerated hernia in the left lower quadrant, after anesthetizing with Marcaine solution. We were able to dissect down to the sac, get it freed up circumferentially; it appears to be a defect in the posterior fascia as the anterior fascia is intact. Once the anterior fascia is incised, we extend the fascial defect to facilitate reduction. Once this is done we are able to open the hernia sac and see the omentum which is black. The omentum and sigmoid epiploicae that were incarcerated and the necrotic tissue is then carefully teased away from the colon using a harmonic scalpel. The colon is quite viable. There was no small bowel that looked questionable. After the necrotic fatty tissue was excised, we then closed the fascial defect in two layers, the posterior layer with a #1 PDS running and the anterior layer with #1 PDS running. We then irrigate the area and we then are able to facilitate placement of a trocar to further evaluate the gallbladder. We made an incision at the umbilicus. The trocar was introduced. Two other working ports are placed in the right upper quadrant. The gallbladder is obviously quite inflamed chronically and acutely. We are able to grasp it superiorly and laterally. With careful meticulous dissection, we are able to separate the offending structures and identify the cystic duct, cystic artery. Both of these are double ligated with hemoclips and transected. The gallbladder is then carefully teased off the gallbladder bed which is quite inflamed and placed in the EndoCatch, pulled out through the subxiphoid incision which must be elongated because of the amount of thickening of the gallbladder. This is then passed off the field. We then check our dissection sites. There is excellent hemostasis. The clips are intact. The liver is smooth, peritoneal surfaces smooth. We then close the fascial defects with 0 Vicryl in an interrupted fashion and the skin at this part is closed with skin jero. The left lower quadrant incision is closed with skin jero. The 5-mm ports are closed with a Monocryl suture. Steri-Strips applied. Sterile bandage was applied. We discussed the intraoperative findings with the by phone. She appeared to understand. Floyd Woo MD JJUANPABLO/COLTON /5:16 PM /2:17 PM
--- NOTE | 2016-12-05 19:45 | MP ---
cc: MOLLY ARELLANO MD DATE OF SURGERY: 12/01/2016. PREOPERATIVE DIAGNOSIS: Incarcerated Spigelian hernia gallbladder on CT. POSTOPERATIVE DIAGNOSIS: Chronically inflamed scarred distended gallbladder and incarcerated Spigelian hernia. OPERATIVE PROCEDURE PERFORMED: Laparoscopic cholecystectomy. SURGEON: Dr. Molly Arellano. EXERCISE SCIENTIST: Dr. Woo. Dr. Woo's assistance was needed due to the complexity of the laparoscopic case and assistance with retraction and camera control. WOUND CLASSIFICATION: Clean / contaminated. ANESTHESIA: General endotracheal anesthesia. IV FLUIDS: See anesthesia sheet. DRAINS: 10 Libyan Harpreet-Camargo drain in the right upper quadrant. COMPLICATIONS: None. SPECIMENS: Gallbladder sent to pathology. INDICATIONS FOR THE PROCEDURE: The patient is a 66-year-old male who came to the hospital with complaints of nausea, vomiting, and abdominal pain noted to have history of a gastric sleeve, significant weight loss at further CT imaging showing an incarcerated Spigelian hernia and significantly thickened distended gallbladder. The patient really had minimal symptoms from the right upper quadrant. DESCRIPTION OF THE PROCEDURE IN DETAIL: The patient had already been in the operating suite. He had already been in the supine position. He was previously prepped and draped as a result of the diagnostic laparoscopy and repair of the open Spigelian hernia, this to be dictated by Dr. Woo. Following assistance with that procedure, we transitioned to a laparoscopic cholecystectomy. Four ports were placed: a 5-mm umbilical port followed by a 12 mm epigastric port and a 5 mm right subcostal and another 5 mm right anterior axillary line port. The patient was placed in steep reverse Trendelenburg position and planed to the left. The patient was noted to have densely adhered intermittently the omentum to the right upper quadrant and gallbladder. This was meticulously peeled away from the gallbladder with much tenacity. We used the Bovie electrocautery dissection irrigation upon freeing some of the densely adherent adhesions, identification of the gallbladder noted to be very necrotic, ill-appearing gallbladder that was very distended and very indurated. The gallbladder was grasped at the fundus and retracted cephalad. The infundibulum was also grasped with suction used with hook bovie electrocautery and [place] graspers in order to identify the cystic duct and the cystic artery. These structures were identified and noted to be the only structures that were going into the gallbladder. Two clips were placed proximal and one distal. Endoshears were used to transect the cystic artery and the cystic duct. The gallbladder was then removed from the gallbladder fossa using hook Bovie electrocautery. The gallbladder was then placed in the EndoCatch bag and removed through the epigastric port. Fresh irrigation was used for thoroughly irrigating the right upper quadrant. Hemostasis was obtained with bovie electrocautery as well. There was no evidence of bleeding or leaking at this point. Decision was made to place a 10-Libyan Harpreet-Camargo drain in the right upper quadrant for monitoring. Next the abdomen was then desufflated. The ports were removed under direct visualization. The 12 mm epigastric port was closed with a 0 Vicryl [id number] suture followed by 4-0 Monocryl and sterile dressings were then placed. Local anesthetic injected. The patient tolerated the procedure well. There were no intraoperative complications. All lap and instrument counts correct counts were correct at the end of the procedure. The patient was extubated and taken to the post-anesthesia care unit. MD SHARAN Arreguin/SIRI /10:12 PM /7:33 PM
== END 2016-12-03 15:54 | disposition home or self-care (01) | DRG 355 ==
LOC: PHED 03:45 → PHEDA 06:17 → N06B 09:03 → N06A 09:18
PROVIDERS: ADMIT Surgery; ATTEND Surgery
PROC: 0FT44ZZ Resection of Gallbladder, Percutaneous Endoscopic Approach (ICD-10-PCS; principal; 2016-12-01 10:57)
PROC: 0WQF0ZZ Repair Abdominal Wall, Open Approach (ICD-10-PCS; 2016-12-01 10:57)
DX: K43.7 Other and unspecified ventral hernia with gangrene (principal); I10 Essential (primary) hypertension; E03.9 Hypothyroidism, unspecified; E78.5 Hyperlipidemia, unspecified; G25.81 Restless legs syndrome; G47.30 Sleep apnea, unspecified; K82.8 Other specified diseases of gallbladder; N28.9 Disorder of kidney and ureter, unspecified; Z72.0 Tobacco use; Z98.84 Bariatric surgery status
CPT/HCPCS: 74177; 80048; 80053; 80076; 81001; 83690; 85025; 88304; 88305; 93005; 94150; 96361; 96374; C9113; J0131; J0690; J2405; J2710; J3010; J7040; J7120; Q9967